=== PATIENT | female | born 1985 ===

== ENCOUNTER 2025-01-31 19:23 | Outpatient (REF) | payer BC, SELFPAY ==
[2025-01-31 15:59] LABS: Abs Immature Grans 0.01 10^3/uL (0.0-0.06); HCT 39.9 % (36.0-46.0); HGB 13.2 g/dL (11.2-15.7); Immature Grans % 0.2 %; MCH 31.0 pg (27.0-33.0); MCHC 33.1 % (32.0-36.0); MCV 94 fL (80-95); MPV 10.3 fL (8.0-11.0); Platelet Count 225 10^3/uL (130-400); RBC 4.26 10^6/uL (3.93-5.22); RDW 11.9 % (11.7-14.6); RDW-SD 41.1 fL; WBC 4.46 10^3/uL (4.4-10.8)
[2025-01-31 16:21] LABS: Hemoglobin A1C 4.9 % (<5.7)
[2025-01-31 16:37] LABS: ALT 31 U/L (14-59); AST 31 U/L (15-37); Albumin 4.4 g/dL (3.4-5.0); Alkaline Phosphatase 57 U/L (46-116); Anion Gap 6.3 mmol/L (3-11); BUN 11 mg/dL (7-18); Bilirubin, Total 0.7 mg/dL (0.2-1.0); CO2 30.7 mmol/L (21.0-32.0); Calcium 9.5 mg/dL (8.5-10.1); Chloride 102 mmol/L (98-107); Estimated GFR 123.04 (mL/min/1.73m2); Ferritin 49 ng/mL (8-252); Glucose 80 mg/dL (74-106); Potassium 4.9 mmol/L (3.5-5.1); Sodium 139 mmol/L (136-145); TSH (W/Ref FT4) 1.08 uIU/mL (0.36-3.74); Total Protein 7.4 g/dL (6.4-8.2); Vitamin D 25 Total 38 ng/mL (30-100)
[2025-02-02 19:30] LABS: Iron 134 ug/dL (50-170); Total Iron Binding Capacity 272 ug/dL (250-450); Transferrin Sat 49 % (15-50)
== END 2025-01-31 19:24 | disposition home or self-care (01) ==
LOC: NCHCN 19:23
PROVIDERS: PCP Nurse Practitioner Family; Visit Provider Nurse Practitioner Family
DX: R53.81 Other malaise (principal); R53.83 Other fatigue
CPT/HCPCS: 80053; 82306; 82728; 83036; 83540; 83550; 84443; 85025